=== PATIENT | male | born 1990 ===

== ENCOUNTER 2016-12-11 21:55 | Emergency (ER) | payer BC, OTHER ==
[2016-12-11 22:19] VITALS: BP 124/72; PULSE 75; RESP 18; TEMP 98; O2SAT 98
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
== END 2016-12-12 02:44 | disposition home or self-care (01) ==
LOC: H.ER 21:55
DX: M54.9 Dorsalgia, unspecified (principal); M54.2 Cervicalgia; E11.9 Type 2 diabetes mellitus without complications; F17.210 Nicotine dependence, cigarettes, uncomplicated